=== PATIENT | female | born 1925 | race Caucasian/White ===

== ENCOUNTER 2016-10-22 10:40 | Inpatient (IN) ==
[2016-10-22] MEDS ORDERED: ACETAMINOPHEN 325 MG TABLET PO PRN (13:28)
[2016-10-22] MEDS ORDERED: ONDANSETRON 4 MG/2 ML VIAL IV PRN (13:28)
[2016-10-22] MEDS ORDERED: RANITIDINE 150 MG TABLET PO PRN (13:28)
[2016-10-22] MEDS ORDERED: ZALEPLON 5 MG CAPSULE PO PRN (13:28)
[2016-10-22] MEDS ORDERED: diphenhydrAMINE CAP 25 MG CAPSULE PO PRN (13:28)
--- NOTE | 2016-10-22 13:37 | EKG Report ---
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
--- NOTE | 2016-10-22 13:51 | Hospitalist History & Physical ---
Assessment and Plan - Time spent with patient Time spent with patient: Greater than 30 minutes (1) Dizziness Status: Acute Assessment and plan: Admit labs ordered(CBC, CMP, Troponin, TSH) a.m. labs ECHO Will discuss with Dr Keyes for further recommendations with care. Current Visit: Yes (2) Sinus tachycardia Status: Acute Current Visit: Yes History of Present Illness Chief complaint: fast heart/dizziness History of present illness: Ms. Pugh is a 89 year old white female w/PMHx of GERD presented to [facility] from Sunitha Mcdermott NP office sent for direct admission for heart rate of 139 appeared to be in atrial flutter. Admit to telemetry. Upon arrival placed on the monitor, heart rate 139 and sinus tachycardia. Patient reports dizziness x1 week and shortness of breath with exertion for a couple of weeks. She reports increasing fatigue. She denies chest pain or shortness of breath with rest. she denies nausea or vomiting. Admit patient to hospital services and will consult cardiology. Denies smoking, alcohol use or drug use. She takes Flu vaccine each year. She has had the pneumococcal vaccine previously. PCP: Sunitha Mcdermott NP [place] Supervisor: Dr Crystal Joseph Medications Medication Instructions Recorded Confirmed Type Aspirin [Ecotrin] 81 mg PO BEDTIME 08/03/15 10/22/16 History Calcium Carbonate/Vitamin D3 1 tablet PO BID 08/03/15 10/22/16 History [Calcium 600-Vit D3 800 Tablet] Cholecalciferol (Vitamin D3) 1,000 units PO BID 08/03/15 10/22/16 History [Vitamin D3] Multivitamin [Multivitamins] 1 each PO DAILY 08/03/15 10/22/16 History Omeprazole 20 mg PO BID 08/03/15 10/22/16 History Ranitidine Tab [Zantac Tab] 150 mg PO DAILY PRN 08/03/15 10/22/16 History Vitamin E 400 units PO DAILY 08/03/15 10/22/16 History diphenhydrAMINE CAP [Benadryl Cap] 25 mg PO Q6-8H PRN 08/03/15 10/22/16 History Levothyroxine Tab [Synthroid Tab] 50 mcg PO DAILY@0700 10/26/15 10/22/16 History Allergies Allergy/AdvReac Type Severity Reaction Status Date / Time Penicillins Allergy Severe HIVES Verified 08/07/15 11:27 Beta-Blockers Allergy Intermediate Cough Verified 08/07/15 11:27 (Beta-Adrenergic Bloc azithromycin [From Zithromax] Allergy Unknown Unknown/Unable Verified 08/07/15 11:27 to obtain ceftriaxone [From Rocephin] Allergy Unknown Unknown/Unable Verified 08/07/15 11: 27 to obtain levofloxacin Allergy Verified 10/26/15 07:16 Medical,Surgical,& Family Hx - Medical History Neurology: No history of: Seizures HEENT: History of: Ear Problem (AIDES), Dental Problems (PARTIAL), Glaucoma ( surgery) Endocrine: History of: Dyslipidemia, Thyroid Disorder (NODULES) Respiratory: Comment Only: Respiratory Problems (SINUS SYRGERY) Gastrointestinal: History of: GERD Musculoskeletal: Comment Only: Musculoskeletal Problems (LOW BONE DENSITY) Hematology: No history of: Blood Transfusion Reaction Other: No history of: Anesthesia Reactions - Surgical History Cardiac Surgeries: Sugical HX of: Cardiac Catheterization HEENT Surgeries: Surgical HX of: Eye Surgery (CATARACTS glaucoma), Thyroid Surgery (RIGHTTHYROID LOBECTOMY POSSIBLE TOTAL), Tonsilectomy & Adenoidectomy Abdominal Surgeries: Surgical HX of: Cholecystectomy, Colonoscopy, EGD Reproductive Surgeries: Surgical HX of;: Breast Surgery (LUMP LEFT BREAST), Hysterectomy - Family History Family History: Reports;: Family Heart Disease (DAD SISTER), Family Hypertension (SISTER MOM) - Social History Smoking Status: Never smoker Frequency of Alcohol Use: None Type of Drug Use: None Marital Status: Lives With:: Spouse Functional capacity: independent ambulation 12 point system: reviewed and no additional remarkable complaints except as stated - Constitutional Constitutional: Present: fatigue. Absent: anorexia, chills, fever(s), frequent falls - Cardiovascular Cardiovascular: Present: dyspnea on exertion, lightheadedness. Absent: chest pain at rest - Respiratory Respiratory: Absent: cough, hemoptysis, wheezing - Gastrointestinal Gastrointestinal: Present: diarrhea. Absent: abdominal pain - Neurological Neurological: Present: dizziness (with standing) - Psychiatric Psychiatric: Absent: anxiety Exam - Constitutional Vitals: Period Temp Pulse Resp BP Sys/Melgar Pulse Ox Last 24 Hr 97.9 F 128 18 142/83 97 General appearance: normal weight, no acute distress - Head Head exam: Present: normal inspection - Eye Eye exam: Present: EOMI Pupils: Present: DARRYL - Neck Neck exam: Present: normal inspection - Respiratory Respiratory exam: Present: clear to auscultation bilaterally. Absent: rhonchi, stridor, wheezes - Cardiovascular Cardiovascular exam: Present: tachycardia - GI/Abdominal GI/Abdominal exam: Present: normal bowel sounds, soft. Absent: tenderness, rebound - Extremities Exam Extremities exam: Present: normal inspection, full ROM. Absent: edema - Neurological Exam Neurological exam: Present: alert, oriented X3, CN II-XII intact - Psychiatric Psychiatric exam: Present: normal affect, normal mood. Absent: agitated, anxious - Skin Skin exam: Present: normal color, warm, dry Results - Labs Labs: labs ordered and pending results
--- NOTE | 2016-10-22 14:52 | Cardiology Consult Note ---
<Bernice Obregon - Last Filed: 10/22/16 15:23> Assessment and Plan - Time spent with patient Time spent with patient: Greater than 30 minutes (1) Atrial flutter Status: Acute Assessment and plan: SEE PLAN OF CARE LISTED BELOW. (2) Dizziness Status: Acute (3) Hypothyroidism Status: Chronic (4) GERD (gastroesophageal reflux disease) Status: Chronic Assessment and plan: SEE PLAN OF CARE LISTED BELOW. History of Present Illness - Data of Consult Patient: known to practice within the last 3 years Consult date: 10/22/16 Requesting Physician: Sarah Cruz - Consult Narrative Reason for consult: Tachycardia History of present illness: Online Education Manager: Dr. Rojas Ms. Pugh is a 89 year old female without known history of coronary artery disease, routinely followed by Dr. Rojas. Cardiac risk factors include: advanced age, sedentary lifestyle and family history of premature coronary artery disease (father at age 54 from [place]). She has a past medical history of hypothyroidism, on Synthroid. She just recently underwent nuclear stress test May 08, 2016. This was a normal perfusion study without perfusion defects. No evidence of reversible ischemia. Low risk for future cardiovascular events. Left ventricular ejection fraction calculated to be 86% . Echocardiogram April 30, 2016 revealed LVEF 65% grade 1 diastolic dysfunction. Mild LVH. Mild MR, mild TR and mild aortic regurgitation. PAP 22 mmHg. Patient was directly admitted from [facility]'s office today for tachycardia. She reports that over the past 10 weeks she has "not felt right." She reports that she has been fatigued and tired out quickly. This past week , her symptoms worsen. She reports this past week she felt her pulse. At that point, she realized that her heart was beating faster than usual. She took her blood pressure at that time and it was noted to be 89/50. Heart rate of 132. After that, she continued to monitor her heart rate and blood pressure closely for the remainder of the week and we can. She reports that her heart rate got as high as 136. Never dropped below 132. Blood pressure was borderline low in the low 90s. Associated with dyspnea. Denies associated chest pain, heaviness or tightness. Denies heart palpitations and heart racing. She was worked in at [facility]'s [facility] office today. She underwent EKG as well as chest x-ray. EKG revealed probable atrial flutter. Patient was then directly admitted to hospital medicine service to be further evaluated. Patient's initial EKG reveals atrial flutter versus sinus tachycardia. Atrial flutter suspected. However, it is hard to tell for sure. At this point, we will attempt to slow patient's heart rate with IV diltiazem. Will recheck EKG once her rate has slowed. Chads vasc score 3. Low-dose Eliquis has been initiated for stroke prevention. Will transition patient to p.o. diltiazem tomorrow if able. Labs are pending. Echocardiogram was ordered per hospital medicine. These results will be reviewed. TSH and free T4 pending. Electrolytes pending I will further discuss with Dr. Kayla Lr and await her additional recommendations. Of note, patient denies any contraindications to anticoagulation. IMPRESSION AND PLAN: 1. TACHYCARDIA, SINUS TACHYCARDIA VERSUS ATRIAL FLUTTER - New diagnosis. This appears to be atrial flutter. However, it is hard to tell for sure. At this point, we will attempt to slow patient's heart rate with IV diltiazem. Will recheck EKG once her rate has slowed. Chads vasc score 3. Low-dose Eliquis has been initiated for stroke prevention. Will transition patient to p.o. diltiazem tomorrow if able. I will further discuss with Dr. Kayla Lr and await her additional recommendations. 2. HYPOTHYROIDISM - Synthroid has been continued. Will check TSH and free T4. Defer management to attending. 3. GERD - Continue PPI. CC: Onesimo Keyes MD - Home Medications and Allergies Home Medications: Home Medications Medication Instructions Recorded Confirmed Type Aspirin [Ecotrin] 81 mg PO BEDTIME 08/03/15 10/22/16 History Calcium Carbonate/Vitamin D3 1 tablet PO BID 08/03/15 10/22/16 History [Calcium 600-Vit D3 800 Tablet] Cholecalciferol (Vitamin D3) 1,000 units PO BID 08/03/15 10/22/16 History [Vitamin D3] Multivitamin [Multivitamins] 1 each PO DAILY 08/03/15 10/22/16 History Omeprazole 20 mg PO BID 08/03/15 10/22/16 History Ranitidine Tab [Zantac Tab] 150 mg PO DAILY PRN 08/03/15 10/22/16 History Vitamin E 400 units PO DAILY 08/03/15 10/22/16 History diphenhydrAMINE CAP [Benadryl Cap] 25 mg PO Q6-8H PRN 08/03/15 10/22/16 History Levothyroxine Tab [Synthroid Tab] 50 mcg PO DAILY@0700 10/26/15 10/22/16 History Diltiazem HCl [Cardizem LA] 360 mg PO AC BREAKFAST #60 10/23/16 Rx tab.er.24h Warfarin [Coumadin] 1 mg PO DAILY@1800 #120 tablet 10/23/16 Rx Allergies/Adverse Reactions: Allergies Allergy/AdvReac Type Severity Reaction Status Date / Time Penicillins Allergy Severe HIVES Verified 08/07/15 11:27 Beta-Blockers Allergy Intermediate Cough Verified 08/07/15 11:27 (Beta-Adrenergic Bloc azithromycin [From Zithromax] Allergy Unknown Unknown/Unable Verified 08/07/15 11:27 to obtain ceftriaxone [From Rocephin] Allergy Unknown Unknown/Unable Verified 08/07/15 11: 27 to obtain levofloxacin Allergy Verified 10/26/15 07:16 - Constitutional Constitutional: Present: as per HPI, fatigue, malaise, weakness. Absent: chills , fever(s), frequent falls, weight gain, weight loss - Cardiovascular Cardiovascular: Present: as per HPI, dyspnea, lightheadedness. Absent: chest pain at rest, chest pain with activity, claudication, diaphoresis, edema, radiating jaw, neck or arm pain, orthopnea, palpitations, PND - Respiratory Respiratory: Present: as per HPI, dyspnea. Absent: wheezing, snoring, pain on inspiration, change in phlegm color - Gastrointestinal Gastrointestinal: Present: as per HPI, diarrhea. Absent: coffee ground emesis, hematemesis, hematochezia, loose stools, melena, nausea, vomiting - Neurological Neurological: Present: as per HPI. Absent: abnormal gait, abnormal speech, behavioral changes, disequilibrium, dizziness, frequent falls, syncope - Hematologic/Lymphatic Hematologic/Lymphatic: Absent: easy bleeding, easy bruising, lymphadenopathy Medical,Surgical,& Family Hx - Medical History HEENT: History of: Dental Problems (PARTIAL), Glaucoma (surgery) Endocrine: History of: Dyslipidemia, Thyroid Disorder (NODULES) Respiratory: Comment Only: Respiratory Problems (SINUS SYRGERY) Gastrointestinal: History of: GERD Musculoskeletal: Comment Only: Musculoskeletal Problems (LOW BONE DENSITY) - Surgical History HEENT Surgeries: Surgical HX of: Eye Surgery (CATARACTS glaucoma), Thyroid Surgery (RIGHTTHYROID LOBECTOMY POSSIBLE TOTAL), Tonsilectomy & Adenoidectomy Abdominal Surgeries: Surgical HX of: Cholecystectomy, Colonoscopy, EGD Reproductive Surgeries: Surgical HX of;: Breast Surgery (LUMP LEFT BREAST), Hysterectomy - Family History Family History: Reports;: Family Heart Disease (DAD SISTER), Family Hypertension (SISTER MOM) - Social History Smoking Status: Never smoker Frequency of Alcohol Use: None Type of Drug Use: None Marital Status: Lives With:: Spouse Functional capacity: independent ambulation Physical Examination Vital Signs Temp Pulse Resp BP Pulse Ox 97.9 F 128 H 18 142/83 97 10/22/16 12:03 10/22/16 12:03 10/22/16 12:03 10/22/16 12:03 10/22/16 12:03 Exam: General: Appears well with no apparent distress. Pleasant and cooperative. Appears comfortable. HEENT: PERRL, normocephalic, atraumatic. Mucous membranes moist. No jaundice noted. Conjunctiva moist and clear, sclerae anicteric Neck: No JVD/HJR, no thyromegaly or lymphadenopathy noted. No carotid bruit appreciated Cardiac: Tachycardia. No murmur rub or gallop. Lungs: Clear to auscultation without accessory muscle use to assist the respiratory pattern. Not requiring oxygen. Abdomen: Soft, bowel sounds normoactive. Nontender and nondistended. No abdominal bruit or thrill noted. No masses noted. Extremities: No clubbing, cyanosis noted. No edema noted. Upper extremity pulses 2+. Lower extremity pulses 2+. Capillary refill less than 3 seconds. Skin: No unusual lesions or rashes. No skin breakdown appreciated. Neuro: Awake, alert and oriented 3. Moves all extremities well without hemiparesis or paralysis. No essential tremor is appreciated. Result/EKG - Labs CBC & BMP: 10/22/16 14:56 Lab Results: I have reviewed the past 24 hour labs - EKG EKG results: interpreted by me (Atrial flutter with RVR) Specialty Discharge - Follow Up or Referrals Follow up with: Iwona Rojas DO [Physician] - 11/12/16 2:15 pm (pt/inr lab drawn on 10/28/16 at 10:00 at cis other labs drawn on 10/28/16 at 10:30 at cis) <BeKayla - Last Filed: 10/23/16 18:36> History of Present Illness - Consult Narrative History of present illness: I have personally interviewed and examined the patient, reviewed the chart and discussed medical decision-making with practitioner Sabas. I have read this note and agree with the documentation herein. CC: Onesimo Keyes MD Physical Examination Vital Signs Temp Pulse Resp BP Pulse Ox 97.9 F 128 H 18 142/83 97 10/22/16 12:03 10/22/16 12:03 10/22/16 12:03 10/22/16 12:03 10/22/16 12:03 Result/EKG - Labs CBC & BMP: 10/23/16 04:46 10/23/16 04:46 Labs: Laboratory Results - last 24 hr 10/22/16 10/23/16 10/23/16 22:26 04:46 04:46 WBC 7.5 RBC 3.89 Hgb 11.9 L Hct 35.2 L MCV 90.5 MCH 31 MCHC 33.8 RDW 13.2 Plt Count 235 MPV 9.8 Neut % (Auto) 43.8 Lymph % (Auto) 44.8 [place] % (Auto) 8.4 Eos % (Auto) 2.4 Baso % (Auto) 0.5 Neut # (Auto) 3.3 Lymph # (Auto) 3.4 [place] # (Auto) 0.6 Eos # (Auto) 0.2 Baso # (Auto) 0.0 Immature Gran % 0.1 Nucleated RBC % 0.0 Immature Gran # 0.01 Nucleated RBCs # 0.00 Immature Plt Fraction 0.0 INR PT Patient/Control Mix Sodium 141 Potassium 4.0 Chloride 109 H Carbon Dioxide 24 Anion Gap 12.0 BUN 16 Creatinine 0.80 GFR Calculation 57 BUN/Creatinine Ratio 20.00 Glucose 83 Calculated Osmolality 280.3 Calcium 9.0 Magnesium 2.1 Total Creatine Kinase 48 CK-MB (CK-2) 1.2 Troponin I 0.035 Triglycerides Cholesterol LDL Cholesterol VLDL Cholesterol HDL Cholesterol Heart Disease Risk Ratio 10/23/16 10/23/16 10/23/16 04:46 04:46 04:46 WBC RBC Hgb Hct MCV MCH MCHC RDW Plt Count MPV Neut % (Auto) Lymph % (Auto) [place] % (Auto) Eos % (Auto) Baso % (Auto) Neut # (Auto) Lymph # (Auto) [place] # (Auto) Eos # (Auto) Baso # (Auto) Immature Gran % Nucleated RBC % Immature Gran # Nucleated RBCs # Immature Plt Fraction INR 1.0 PT Patient/Control Mix 10.7 Sodium Potassium Chloride Carbon Dioxide Anion Gap BUN Creatinine GFR Calculation BUN/Creatinine Ratio Glucose Calculated Osmolality Calcium Magnesium Total Creatine Kinase 43 CK-MB (CK-2) < 1.0 Troponin I 0.029 Triglycerides 171 H Cholesterol 222 H LDL Cholesterol 144.0 VLDL Cholesterol 34.2 HDL Cholesterol 50 Heart Disease Risk Ratio 4.44
[2016-10-22] MEDS ORDERED: DILTIAZEM INJ 100 MG in SODIUM CHLORIDE 0.9% 100 ML IV SCH (15:00)
[2016-10-22] MEDS ORDERED: ENOXAPARIN 40 MG/0.4 ML SYRINGE SUBCUT SCH (15:00)
[2016-10-22 15:12] LABS: Basophils % 0.4 % (0.0-0.8); Eosinophils # 0.1 10*3/uL (0.0-0.87); Eosinophils % 1.2 % (0.00-10.9); Hematocrit 40.4 VOL% (35.7-47.0); Hemoglobin 13.7 GM/DL (12.0-16.0); Immature Granulocytes % 0.1 %; Immature Granulocytes Absolute 0.01 #; Lymphocytes # 2.8 10*3/uL (1.4-4.0); Lymphocytes % 41.5 % (21.3-54.2); Mean Corpuscular HGB Conc 33.9 GM/DL (32-36); Mean Corpuscular Hemoglobin 31 PG (27-34); Mean Corpuscular Volume 92.4 FL (87-102); Mean Platelet Volume 9.2 FL (9.6-12.0); Monocytes # 0.4 10*3/uL (0.11-0.8); Monocytes % 6.3 % (1.7-12.7); Neutrophils # 3.4 10*3/uL (1.4-7.4); Neutrophils % 50.5 % (38.7-73.9); Platelet Count 240 T/CUMM (130-400); Red Blood Count 4.37 MC/CUMM (3.8-5.5); Red Cell Distribution Width 13.2 % (9.3-17.3); White Blood Count 6.8 T/CUMM (4-12)
[2016-10-22 15:34] LABS: Calcium 9.5 MG/DL (8.5-10.1); Magnesium 2.5 MG/DL (1.8-2.4); Osmolality,Calculated 281.3 MOS/KG (273-304); Potassium 4.4 MMOL/L (3.5-5.1)
[2016-10-22 15:38] LABS: Troponin I Only < 0.015 NG/ML (0.00-0.045)
[2016-10-22] MEDS: SODIUM CHLORIDE 0.9% 1,000 ML IV SCH (15:39)
[2016-10-22] MEDS: PANTOPRAZOLE 40 MG TABLET PO SCH ×2 (15:42→20:40)
[2016-10-22 15:45] LABS: Free T4 (Free Thyroxine) 1.17 NG/DL (0.76-1.46); Thyroid Stimulating Hormone 1.27 uIU/ml (0.358-3.74)
--- NOTE | 2016-10-22 19:19 | EKG Report ---
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
--- NOTE | 2016-10-22 19:27 | Event Note ---
I am not able to amend practitioner Sabas's notes due to "updates in progress" per the computer. I have personally interviewed and examined the patient, reviewed the chart and discussed medical decision-making with practitioner Sabas. I have read her consult note and agree with the documentation therein. Her rate has slowed considerably and was still regular, repeat ECG confirms atrial flutter. We are going to convert her from IV to oral regimen. She does not want to take Eliquis due to cost and would prefer to be on Coumadin, so we will initiate this this evening.
[2016-10-22] MEDS ORDERED: WARFARIN 5 MG TABLET PO SCH (20:00)
--- NOTE | 2016-10-22 20:06 | ECHO Report ---
Xiomara Pugh Exam Date: 10/22/2016 14:36 Referring Physician: Technologist: Penny Kwong RDCS Age: 89 Ht (in): 62 Wt (lb): 114 Gender: F Exam Location: [facility] Echo Indications: dizziness, sinus tachycardia, SOB, fatique BP: / HR: Rhythm: Atrial flutter Technical Quality: Fair IMPRESSIONS Normal LV systolic function, ejection fraction 65%. Grade 1/4 diastolic dysfunction. Mild mitral, aortic, tricuspid regurgitation. MEASUREMENTS (Male / Female) Normal Values 2D ECHO LV Diastolic Diameter PLAX 3.6 cm 4.2 - 5.9 / 3.9 - 5.3 cm LV Systolic Diameter PLAX 2.1 cm LV Fractional Shortening PLAX 42.8 % IVS Diastolic Thickness 1.0 cm 0.6 - 1.0 / 0.6 - 0.9 cm LVPW Diastolic Thickness 1.0 cm 0.6 - 1.0 / 0.6 - 0.9 cm RV Internal Dim ED PLAX 1.7 cm Aortic Root Diameter 3.4 cm LA Systolic Diameter LX 3.0 cm 3.0 - 4.0 / 2.7 - 3.8 cm DOPPLER TR Peak Velocity 217.0 cm/s TR Peak Gradient 18.8 mmHg FINDINGS Left Ventricle Normal left ventricular cavity size. Mild left ventricular hypertrophy. Left ventricular ejection fraction is estimated at 65%. Right Ventricle The right ventricle is normal in size and function. Right Atrium Normal size. Left Atrium Normal size. Mitral Valve Morphologically normal mitral valve. Trace mitral valve regurgitation. Aortic Valve Trileaflet aortic valve. Mild aortic valve regurgitation. Tricuspid Valve Morphologically normal tricuspid valve. Trace tricuspid valve regurgitation. Tricuspid regurgitation velocities suggest a PAP of 29 mmHg. Pulmonic Valve Morphologically normal pulmonic valve without significant stenosis. There is no pulmonic regurgitation. Pericardium Normal pericardium without effusion. Aorta Normal ascending aorta dimension. Kayla Lr MD (Electronically Signed) Final Date: 22 October 2016 20:05
[2016-10-22] MEDS: CALCIUM (CARBONATE)/VITAMIN D 600 MG-400 UNIT TABLET PO SCH (20:40)
[2016-10-22] MEDS: CHOLECALCIFEROL 1,000 UNIT TABLET PO SCH (20:40)
[2016-10-22] MEDS: APIXABAN 2.5 MG TABLET PO SCH ×2 (20:41→22:40)
[2016-10-22] MEDS: DILTIAZEM CD 120 MG CAPSULE PO SCH (20:46)
[2016-10-22] MEDS ORDERED: ASPIRIN EC 81 MG TABLET PO SCH (21:00)
[2016-10-22 23:41] LABS: Troponin I Only 0.035 NG/ML (0.00-0.045)
[2016-10-23 05:30] LABS: Basophils % 0.5 % (0.0-0.8); Eosinophils # 0.2 10*3/uL (0.0-0.87); Eosinophils % 2.4 % (0.00-10.9); Hematocrit 35.2 VOL% (35.7-47.0); Hemoglobin 11.9 GM/DL (12.0-16.0); Immature Granulocytes % 0.1 %; Immature Granulocytes Absolute 0.01 #; Lymphocytes # 3.4 10*3/uL (1.4-4.0); Lymphocytes % 44.8 % (21.3-54.2); Mean Corpuscular HGB Conc 33.8 GM/DL (32-36); Mean Corpuscular Hemoglobin 31 PG (27-34); Mean Corpuscular Volume 90.5 FL (87-102); Mean Platelet Volume 9.8 FL (9.6-12.0); Monocytes # 0.6 10*3/uL (0.11-0.8); Monocytes % 8.4 % (1.7-12.7); Neutrophils # 3.3 10*3/uL (1.4-7.4); Neutrophils % 43.8 % (38.7-73.9); Platelet Count 235 T/CUMM (130-400); Red Blood Count 3.89 MC/CUMM (3.8-5.5); Red Cell Distribution Width 13.2 % (9.3-17.3); White Blood Count 7.5 T/CUMM (4-12)
[2016-10-23 05:58] LABS: PT Patient Result 10.7 SECS
[2016-10-23 06:01] LABS: Magnesium 2.1 MG/DL (1.8-2.4); Osmolality,Calculated 280.3 MOS/KG (273-304)
[2016-10-23 06:11] LABS: Risk Ratio 4.44; VLDL CHOLESTEROL 34.2 MG/DL
[2016-10-23] MEDS: PANTOPRAZOLE 40 MG TABLET PO SCH ×2 (06:12→09:44)
[2016-10-23 06:40] LABS: Troponin I Only 0.029 NG/ML (0.00-0.045)
[2016-10-23] MEDS ORDERED: LEVOTHYROXINE 50 MCG TABLET PO SCH (07:00)
[2016-10-23] MEDS ORDERED: FAMOTIDINE 20 MG TABLET PO SCH (07:00)
--- NOTE | 2016-10-23 07:34 | EKG Report ---
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
[2016-10-23] MEDS ORDERED: MULTIVITAMIN (CENTRUM) TABLET PO SCH (09:00)
[2016-10-23] MEDS ORDERED: VITAMIN E 400 UNIT CAPSULE PO SCH (09:00)
[2016-10-23] MEDS: CHOLECALCIFEROL 1,000 UNIT TABLET PO SCH (09:44)
[2016-10-23] MEDS: CALCIUM (CARBONATE)/VITAMIN D 600 MG-400 UNIT TABLET PO SCH (09:44)
[2016-10-23] MEDS: DILTIAZEM CD 120 MG CAPSULE PO SCH (09:45)
[2016-10-23] MEDS ORDERED: APIXABAN 2.5 MG TABLET PO SCH (10:00)
--- NOTE | 2016-10-23 10:02 | Cardiology Progress Note ---
<Bernice Obregon - Last Filed: 10/23/16 11:00> Assessment and Plan (1) Atrial flutter Status: Acute Assessment and plan: SEE PLAN OF CARE LISTED BELOW. Current Visit: Yes (2) Dizziness Status: Acute Current Visit: Yes (3) Hypothyroidism Status: Chronic Current Visit: Yes (4) GERD (gastroesophageal reflux disease) Status: Chronic Assessment and plan: SEE PLAN OF CARE LISTED BELOW. Current Visit: Yes (5) Elevated cholesterol with elevated triglycerides Status: Acute Assessment and plan: SEE PLAN OF CARE LISTED BELOW. Current Visit: Yes Cardiology - PN: Subj Interval history: [employer] COACH: Dr. Rojas SUMMARY Ms. Pugh is a 89 year old female without known history of coronary artery disease, routinely followed by Dr. Rojas. Cardiac risk factors include: advanced age, sedentary lifestyle and family history of premature coronary artery disease (father at age 54 from [place]). She has a past medical history of hypothyroidism, on Synthroid. She just recently underwent nuclear stress test May 08, 2016. This was a normal perfusion study without perfusion defects. No evidence of reversible ischemia. Low risk for future cardiovascular events. Left ventricular ejection fraction calculated to be 86% . Echocardiogram April 30, 2016 revealed LVEF 65% grade 1 diastolic dysfunction. Mild LVH. Mild MR, mild TR and mild aortic regurgitation. PAP 22 mmHg. Patient was directly admitted from [facility]'s office today for atrial flutter with rapid ventricular response. She was started on IV diltiazem. Transition to p.o. yesterday evening. She has tolerated well. Chads vasc score 3. Eliquis was switched to Coumadin due to cost issues. INR today is 1.0. Will continue to bridge with Eliquis until INR reaches 1.5. 2016 Patient was seen and examined on the telemetry unit. She has done well overnight. Echocardiogram was performed yesterday which revealed normal LV systolic function with ejection fraction estimated at 65%. Grade 1 out of 4 diastolic dysfunction. Mild mitral, aortic and tricuspid valve regurgitation per she was transitioned to p.o. diltiazem yesterday. She has tolerated this well. She has been overall well rate controlled. Continues to be in atrial flutter. Her heart rate is currently ranging from 80s-90s. Reluctant to increase diltiazem as her blood pressure will not allow. Most recent blood pressure noted to be 110/65. INR today is 1.0. Continue Coumadin. Will continue to bridge with Eliquis until INR reaches 1.5. She is without complaints of chest pain, heaviness or tightness. Also denies heart racing/ palpitations. Labs been reviewed. Vital signs stable. I will further discuss with Dr. Lr and await her additional recommendations. IMPRESSION AND PLAN: 1. ATRIAL FLUTTER, NEW ONSET- Repeat EKG confirmed atrial flutter. Right now controlled with diltiazem. Patient transitioned to p.o. yesterday evening. Tolerated well. Chads vasc score 3. Eliquis was switched to Coumadin due to cost issues. INR today is 1.0. Will continue to bridge with Eliquis until INR reaches 1.5. Patient may be eligible for discharge later today or tomorrow morning. I will further discuss with Dr. Lr and await her additional recommendations. 2. HYPOTHYROIDISM - Continue Synthroid. Defer management to attending. 3. GERD - Controlled continue PPI. 4. ELEVATED TOTAL CHOLESTEROL - Results of patient's lipid panel were discussed. She has opted to attempt lifestyle changes. Dietitian consulted. She will need a repeat lipid panel in 4-6 weeks. If this continues to be elevated can consider statin therapy. Exam (Progress Note) - Constitutional Vitals: Period Temp Pulse Resp BP Sys/Melgar Pulse Ox Last 24 Hr 97.4 F-98.3 F 67-133 16-18 98-142/57-83 94-97 Exam: General: Appears well with no apparent distress. Pleasant and cooperative. Appears comfortable. HEENT: PERRL, normocephalic, atraumatic. Mucous membranes moist. No jaundice noted. Conjunctiva moist and clear, sclerae anicteric Neck: No JVD/HJR, no thyromegaly or lymphadenopathy noted. No carotid bruit appreciated Cardiac: Irregular rhythm. No murmur rub or gallop. Lungs: Clear to auscultation without accessory muscle use to assist the respiratory pattern. Not requiring oxygen. Abdomen: Soft, bowel sounds normoactive. Nontender and nondistended. No abdominal bruit or thrill noted. No masses noted. Extremities: No clubbing, cyanosis noted. No edema noted. Upper extremity pulses 2+. Lower extremity pulses 2+. Capillary refill less than 3 seconds. Skin: No unusual lesions or rashes. No skin breakdown appreciated. Neuro: Awake, alert and oriented 3. Moves all extremities well without hemiparesis or paralysis. No essential tremor is appreciated. Result/EKG - Labs CBC & BMP: 10/23/16 04:46 10/23/16 04:46 Lab Results: I have reviewed the past 24 hour labs Labs: Laboratory Results - last 24 hr 10/22/16 10/22/16 10/22/16 14:56 14:56 14:56 WBC 6.8 RBC 4.37 Hgb 13.7 Hct 40.4 MCV 92.4 MCH 31 MCHC 33.9 RDW 13.2 Plt Count 240 MPV 9.2 L Neut % (Auto) 50.5 Lymph % (Auto) 41.5 [place] % (Auto) 6.3 Eos % (Auto) 1.2 Baso % (Auto) 0.4 Neut # (Auto) 3.4 Lymph # (Auto) 2.8 [place] # (Auto) 0.4 Eos # (Auto) 0.1 Baso # (Auto) 0.0 Immature Gran % 0.1 Nucleated RBC % 0.0 Immature Gran # 0.01 Nucleated RBCs # 0.00 Immature Plt Fraction 0.0 INR PT Patient/Control Mix Sodium 141 Potassium 4.4 Chloride 105 Carbon Dioxide 29 Anion Gap 11.4 BUN 15 Creatinine 0.90 GFR Calculation 49 BUN/Creatinine Ratio 16.00 Glucose 107 H Calculated Osmolality 281.3 Calcium 9.5 Magnesium 2.5 H Total Creatine Kinase CK-MB (CK-2) Troponin I Triglycerides Cholesterol LDL Cholesterol VLDL Cholesterol HDL Cholesterol Heart Disease Risk Ratio Free T4 1.17 TSH 3rd Generation 1.270 10/22/16 10/22/16 10/23/16 14:56 22:26 04:46 WBC 7.5 RBC 3.89 Hgb 11.9 L Hct 35.2 L MCV 90.5 MCH 31 MCHC 33.8 RDW 13.2 Plt Count 235 MPV 9.8 Neut % (Auto) 43.8 Lymph % (Auto) 44.8 [place] % (Auto) 8.4 Eos % (Auto) 2.4 Baso % (Auto) 0.5 Neut # (Auto) 3.3 Lymph # (Auto) 3.4 [place] # (Auto) 0.6 Eos # (Auto) 0.2 Baso # (Auto) 0.0 Immature Gran % 0.1 Nucleated RBC % 0.0 Immature Gran # 0.01 Nucleated RBCs # 0.00 Immature Plt Fraction 0.0 INR PT Patient/Control Mix Sodium Potassium Chloride Carbon Dioxide Anion Gap BUN Creatinine GFR Calculation BUN/Creatinine Ratio Glucose Calculated Osmolality Calcium Magnesium Total Creatine Kinase 51 48 CK-MB (CK-2) 1.2 1.2 Troponin I < 0.015 0.035 Triglycerides Cholesterol LDL Cholesterol VLDL Cholesterol HDL Cholesterol Heart Disease Risk Ratio Free T4 TSH 3rd Generation 10/23/16 10/23/16 10/23/16 04:46 04:46 04:46 WBC RBC Hgb Hct MCV MCH MCHC RDW Plt Count MPV Neut % (Auto) Lymph % (Auto) [place] % (Auto) Eos % (Auto) Baso % (Auto) Neut # (Auto) Lymph # (Auto) [place] # (Auto) Eos # (Auto) Baso # (Auto) Immature Gran % Nucleated RBC % Immature Gran # Nucleated RBCs # Immature Plt Fraction INR PT Patient/Control Mix Sodium 141 Potassium 4.0 Chloride 109 H Carbon Dioxide 24 Anion Gap 12.0 BUN 16 Creatinine 0.80 GFR Calculation 57 BUN/Creatinine Ratio 20.00 Glucose 83 Calculated Osmolality 280.3 Calcium 9.0 Magnesium 2.1 Total Creatine Kinase 43 CK-MB (CK-2) < 1.0 Troponin I 0.029 Triglycerides 171 H Cholesterol 222 H LDL Cholesterol 144.0 VLDL Cholesterol 34.2 HDL Cholesterol 50 Heart Disease Risk Ratio 4.44 Free T4 TSH 3rd Generation 10/23/16 04:46 WBC RBC Hgb Hct MCV MCH MCHC RDW Plt Count MPV Neut % (Auto) Lymph % (Auto) [place] % (Auto) Eos % (Auto) Baso % (Auto) Neut # (Auto) Lymph # (Auto) [place] # (Auto) Eos # (Auto) Baso # (Auto) Immature Gran % Nucleated RBC % Immature Gran # Nucleated RBCs # Immature Plt Fraction INR 1.0 PT Patient/Control Mix 10.7 Sodium Potassium Chloride Carbon Dioxide Anion Gap BUN Creatinine GFR Calculation BUN/Creatinine Ratio Glucose Calculated Osmolality Calcium Magnesium Total Creatine Kinase CK-MB (CK-2) Troponin I Triglycerides Cholesterol LDL Cholesterol VLDL Cholesterol HDL Cholesterol Heart Disease Risk Ratio Free T4 TSH 3rd Generation Specialty Discharge - Follow Up or Referrals Follow up with: Iwona Rojas DO [Physician] - 11/12/16 2:15 pm (With EKG, INR and CBC.) <Kayla Lr - Last Filed: 10/23/16 13:23> Cardiology - PN: Subj Interval history: I have personally interviewed and examined the patient, reviewed the chart and discussed medical decision-making with practitioner Sabas. I have read this note and agree with the documentation herein. I discussed this case personally with Dr. Keyes. We are going to increase her calcium channel ankit for blood pressure allows and discharge her on Coumadin, she will follow-up in the Coumadin clinic and we will make these arrangements. Because this is atrial fibrillation she does not need to be bridged with her Coumadin. Exam (Progress Note) - Constitutional Vitals: Period Temp Pulse Resp BP Sys/Melgar Pulse Ox Last 24 Hr 97.4 F-98.3 F 67-133 16-20 98-123/57-80 94-96 Result/EKG - Labs CBC & BMP: 10/23/16 04:46 10/23/16 04:46 Labs: Laboratory Results - last 24 hr 10/22/16 10/22/16 10/22/16 14:56 14:56 14:56 WBC 6.8 RBC 4.37 Hgb 13.7 Hct 40.4 MCV 92.4 MCH 31 MCHC 33.9 RDW 13.2 Plt Count 240 MPV 9.2 L Neut % (Auto) 50.5 Lymph % (Auto) 41.5 [place] % (Auto) 6.3 Eos % (Auto) 1.2 Baso % (Auto) 0.4 Neut # (Auto) 3.4 Lymph # (Auto) 2.8 [place] # (Auto) 0.4 Eos # (Auto) 0.1 Baso # (Auto) 0.0 Immature Gran % 0.1 Nucleated RBC % 0.0 Immature Gran # 0.01 Nucleated RBCs # 0.00 Immature Plt Fraction 0.0 INR PT Patient/Control Mix Sodium 141 Potassium 4.4 Chloride 105 Carbon Dioxide 29 Anion Gap 11.4 BUN 15 Creatinine 0.90 GFR Calculation 49 BUN/Creatinine Ratio 16.00 Glucose 107 H Calculated Osmolality 281.3 Calcium 9.5 Magnesium 2.5 H Total Creatine Kinase CK-MB (CK-2) Troponin I Triglycerides Cholesterol LDL Cholesterol VLDL Cholesterol HDL Cholesterol Heart Disease Risk Ratio Free T4 1.17 TSH 3rd Generation 1.270 10/22/16 10/22/16 10/23/16 14:56 22:26 04:46 WBC 7.5 RBC 3.89 Hgb 11.9 L Hct 35.2 L MCV 90.5 MCH 31 MCHC 33.8 RDW 13.2 Plt Count 235 MPV 9.8 Neut % (Auto) 43.8 Lymph % (Auto) 44.8 [place] % (Auto) 8.4 Eos % (Auto) 2.4 Baso % (Auto) 0.5 Neut # (Auto) 3.3 Lymph # (Auto) 3.4 [place] # (Auto) 0.6 Eos # (Auto) 0.2 Baso # (Auto) 0.0 Immature Gran % 0.1 Nucleated RBC % 0.0 Immature Gran # 0.01 Nucleated RBCs # 0.00 Immature Plt Fraction 0.0 INR PT Patient/Control Mix Sodium Potassium Chloride Carbon Dioxide Anion Gap BUN Creatinine GFR Calculation BUN/Creatinine Ratio Glucose Calculated Osmolality Calcium Magnesium Total Creatine Kinase 51 48 CK-MB (CK-2) 1.2 1.2 Troponin I < 0.015 0.035 Triglycerides Cholesterol LDL Cholesterol VLDL Cholesterol HDL Cholesterol Heart Disease Risk Ratio Free T4 TSH 3rd Generation 10/23/16 10/23/16 10/23/16 04:46 04:46 04:46 WBC RBC Hgb Hct MCV MCH MCHC RDW Plt Count MPV Neut % (Auto) Lymph % (Auto) [place] % (Auto) Eos % (Auto) Baso % (Auto) Neut # (Auto) Lymph # (Auto) [place] # (Auto) Eos # (Auto) Baso # (Auto) Immature Gran % Nucleated RBC % Immature Gran # Nucleated RBCs # Immature Plt Fraction INR PT Patient/Control Mix Sodium 141 Potassium 4.0 Chloride 109 H Carbon Dioxide 24 Anion Gap 12.0 BUN 16 Creatinine 0.80 GFR Calculation 57 BUN/Creatinine Ratio 20.00 Glucose 83 Calculated Osmolality 280.3 Calcium 9.0 Magnesium 2.1 Total Creatine Kinase 43 CK-MB (CK-2) < 1.0 Troponin I 0.029 Triglycerides 171 H Cholesterol 222 H LDL Cholesterol 144.0 VLDL Cholesterol 34.2 HDL Cholesterol 50 Heart Disease Risk Ratio 4.44 Free T4 TSH 3rd Generation 10/23/16 04:46 WBC RBC Hgb Hct MCV MCH MCHC RDW Plt Count MPV Neut % (Auto) Lymph % (Auto) [place] % (Auto) Eos % (Auto) Baso % (Auto) Neut # (Auto) Lymph # (Auto) [place] # (Auto) Eos # (Auto) Baso # (Auto) Immature Gran % Nucleated RBC % Immature Gran # Nucleated RBCs # Immature Plt Fraction INR 1.0 PT Patient/Control Mix 10.7 Sodium Potassium Chloride Carbon Dioxide Anion Gap BUN Creatinine GFR Calculation BUN/Creatinine Ratio Glucose Calculated Osmolality Calcium Magnesium Total Creatine Kinase CK-MB (CK-2) Troponin I Triglycerides Cholesterol LDL Cholesterol VLDL Cholesterol HDL Cholesterol Heart Disease Risk Ratio Free T4 TSH 3rd Generation
[2016-10-23 11:57] VITALS: BP 114/75
--- NOTE | 2016-10-23 12:06 | Discharge Summary ---
Hospital Course - Hospital Course Hospital Course: The patient was admitted to hospital with weakness and intermittent palpitations. She was found to have atrial flutter. The patient was treated with intravenous Cardizem for rate control and then started on long-acting Cardizem capsule at the time of discharge. The patient feels better. Echocardiogram revealed ejection fraction 65% with left atrial diameter of 30 mm. The patient is familiar with warfarin and will be anticoagulated. The patient will follow up with Coumadin clinic at [facility]. The patient will see Dr. Batista in follow-up and discuss possible ablation at that time. On the date of discharge, chest is clear, heart has irregular rhythm consistent with atrial flutter, abdomen soft. Patient medications were reconciled upon admission, and again at the time of discharge. The patient was screened for tobacco use and found to be a never smoker. The patient was given 4 minutes of tobacco avoidance education. The patient's medical decsion maker is themself, and when asked, they asked to be Full code. Discharge Time was 36 minutes, including final examination, evaluation and planning, education, reconciliation of medications, writing prescriptions, coordinating care with caseworker intake, and preparing discharge documentation. - Time spent with patient Time with patient DS: Greater than 30 minutes Diagnosis - Discharge Diagnosis (1) Atrial flutter Status: Acute Specialty Discharge - Follow Up or Referrals Follow up with: Iwona Rojas DO [Physician] - 2 Weeks (With EKG, INR and CBC.) Discharge Plan - Discharge Data Disposition: Disch To Home/Self Care Condition at Discharge: Stable Discharge Diet: heart healthy Activity: resume usual activities as tolerated - Discharge Medications New Warfarin [Coumadin] 1 mg PO DAILY@1800 #120 tablet Diltiazem HCl [Cardizem LA] 360 mg PO AC BREAKFAST #60 tab.er.24h Continue Omeprazole 20 mg PO BID Ranitidine Tab [Zantac Tab] 150 mg PO DAILY PRN PRN Reason: Heartburn diphenhydrAMINE CAP [Benadryl Cap] 25 mg PO Q6-8H PRN PRN Reason: Sinus Symptoms Cholecalciferol (Vitamin D3) [Vitamin D3] 1,000 units PO BID Vitamin E 400 units PO DAILY Aspirin [Ecotrin] 81 mg PO BEDTIME Multivitamin [Multivitamins] 1 each PO DAILY Calcium Carbonate/Vitamin D3 [Calcium 600-Vit D3 800 Tablet] 1 tablet PO BID Levothyroxine Tab [Synthroid Tab] 50 mcg PO DAILY@0700 - Follow Up or Referral Follow Up: wIona Rojas DO [Physician] - 2 Weeks (With EKG, INR and CBC.) - Forms/Instructions Exam - Constitutional Vitals: Period Temp Pulse Resp BP Sys/Melgar Pulse Ox Last 24 Hr 97.4 F-98.3 F 67-133 16-20 98-123/57-80 94-96 Discharge Results Procedures and tests throughout hospitalization: Pending Orders 10/24/16 04:00 BMP w/ Mg [Basic Metabolic Panel w/Mg] IN AM CBC [Comp Blood Count Auto Diff] IN AM PT & PTT IN AM Prothrombin Time INR IN AM 10/25/16 04:00 BMP w/ Mg [Basic Metabolic Panel w/Mg] IN AM CBC [Comp Blood Count Auto Diff] IN AM PT & PTT IN AM Prothrombin Time INR IN AM 10/26/16 04:00 PT & PTT IN AM 10/27/16 04:00 PT & PTT IN AM 10/28/16 04:00 PT & PTT IN AM Labs on day of discharge: Labs from last 24 hours 10/23/16 10/23/16 10/23/16 04:46 04:46 04:46 WBC RBC Hgb Hct MCV MCH MCHC RDW Plt Count MPV Neut % (Auto) Lymph % (Auto) [place] % (Auto) Eos % (Auto) Baso % (Auto) Neut # (Auto) Lymph # (Auto) [place] # (Auto) Eos # (Auto) Baso # (Auto) Immature Gran % Nucleated RBC % Immature Gran # Nucleated RBCs # Immature Plt Fraction INR 1.0 PT Patient/Control Mix 10.7 Sodium Potassium Chloride Carbon Dioxide Anion Gap BUN Creatinine GFR Calculation BUN/Creatinine Ratio Glucose Calculated Osmolality Calcium Magnesium Total Creatine Kinase 43 CK-MB (CK-2) < 1.0 Troponin I 0.029 Triglycerides 171 H Cholesterol 222 H LDL Cholesterol 144.0 VLDL Cholesterol 34.2 HDL Cholesterol 50 Heart Disease Risk Ratio 4.44 Free T4 TSH 3rd Generation 10/23/16 10/23/16 10/22/16 04:46 04:46 22:26 WBC 7.5 RBC 3.89 Hgb 11.9 L Hct 35.2 L MCV 90.5 MCH 31 MCHC 33.8 RDW 13.2 Plt Count 235 MPV 9.8 Neut % (Auto) 43.8 Lymph % (Auto) 44.8 [place] % (Auto) 8.4 Eos % (Auto) 2.4 Baso % (Auto) 0.5 Neut # (Auto) 3.3 Lymph # (Auto) 3.4 [place] # (Auto) 0.6 Eos # (Auto) 0.2 Baso # (Auto) 0.0 Immature Gran % 0.1 Nucleated RBC % 0.0 Immature Gran # 0.01 Nucleated RBCs # 0.00 Immature Plt Fraction 0.0 INR PT Patient/Control Mix Sodium 141 Potassium 4.0 Chloride 109 H Carbon Dioxide 24 Anion Gap 12.0 BUN 16 Creatinine 0.80 GFR Calculation 57 BUN/Creatinine Ratio 20.00 Glucose 83 Calculated Osmolality 280.3 Calcium 9.0 Magnesium 2.1 Total Creatine Kinase 48 CK-MB (CK-2) 1.2 Troponin I 0.035 Triglycerides Cholesterol LDL Cholesterol VLDL Cholesterol HDL Cholesterol Heart Disease Risk Ratio Free T4 TSH 3rd Generation 10/22/16 10/22/16 10/22/16 14:56 14:56 14:56 WBC 6.8 RBC 4.37 Hgb 13.7 Hct 40.4 MCV 92.4 MCH 31 MCHC 33.9 RDW 13.2 Plt Count 240 MPV 9.2 L Neut % (Auto) 50.5 Lymph % (Auto) 41.5 [place] % (Auto) 6.3 Eos % (Auto) 1.2 Baso % (Auto) 0.4 Neut # (Auto) 3.4 Lymph # (Auto) 2.8 [place] # (Auto) 0.4 Eos # (Auto) 0.1 Baso # (Auto) 0.0 Immature Gran % 0.1 Nucleated RBC % 0.0 Immature Gran # 0.01 Nucleated RBCs # 0.00 Immature Plt Fraction 0.0 INR PT Patient/Control Mix Sodium Potassium Chloride Carbon Dioxide Anion Gap BUN Creatinine GFR Calculation BUN/Creatinine Ratio Glucose Calculated Osmolality Calcium Magnesium Total Creatine Kinase 51 CK-MB (CK-2) 1.2 Troponin I < 0.015 Triglycerides Cholesterol LDL Cholesterol VLDL Cholesterol HDL Cholesterol Heart Disease Risk Ratio Free T4 1.17 TSH 3rd Generation 1.270 10/22/16 14:56 WBC RBC Hgb Hct MCV MCH MCHC RDW Plt Count MPV Neut % (Auto) Lymph % (Auto) [place] % (Auto) Eos % (Auto) Baso % (Auto) Neut # (Auto) Lymph # (Auto) [place] # (Auto) Eos # (Auto) Baso # (Auto) Immature Gran % Nucleated RBC % Immature Gran # Nucleated RBCs # Immature Plt Fraction INR PT Patient/Control Mix Sodium 141 Potassium 4.4 Chloride 105 Carbon Dioxide 29 Anion Gap 11.4 BUN 15 Creatinine 0.90 GFR Calculation 49 BUN/Creatinine Ratio 16.00 Glucose 107 H Calculated Osmolality 281.3 Calcium 9.5 Magnesium 2.5 H Total Creatine Kinase CK-MB (CK-2) Troponin I Triglycerides Cholesterol LDL Cholesterol VLDL Cholesterol HDL Cholesterol Heart Disease Risk Ratio Free T4 TSH 3rd Generation DS: Provider Date of admission: 10/22/16 12:49 Primary care physician: Sunitha Mcdermott NP Attending physician on admission: Adrián Valladares Consults: 10/22/16 13:28 Consult to Physician [CONS] Routine Comment: tachycardia Consulting Provider: Iwona Rojas Person Notified: Tanisha Date Notified: 10/22/16 Time Notified: 13:40 10/22/16 22:25 Consult to Pastoral Services [CONS] Routine Comment: Pastoral Screen: Declines Visit 10/23/16 11:02 Consult to Dietitian [CONS] Routine Reason for Dietitian: Diet Instruction Consult Comment: Low-cholesterol Discharging clinician: Onesimo Keyes MD
[2016-10-23] MEDS: SODIUM CHLORIDE 0.9% 1,000 ML IV SCH (12:28)
== END 2016-10-23 14:27 | disposition home or self-care (01) | DRG 310 ==
LOC: SUATTDRO 11:11 → N.TELES 11:11
PROVIDERS: ATTEND Internal Medicine

== ENCOUNTER 2016-11-12 15:57 | Inpatient (IN) ==
[2016-11-12] MEDS ORDERED: ZALEPLON 5 MG CAPSULE PO PRN (16:01)
[2016-11-12] MEDS ORDERED: ACETAMINOPHEN 325 MG TABLET PO PRN (16:01)
[2016-11-12] MEDS ORDERED: diphenhydrAMINE CAP 25 MG CAPSULE PO PRN (16:01)
[2016-11-12] MEDS ORDERED: DOCUSATE SODIUM 100 MG CAPSULE PO PRN (16:01)
[2016-11-12] MEDS ORDERED: ONDANSETRON 4 MG/2 ML VIAL IV PRN (16:01)
[2016-11-12] MEDS: DILTIAZEM INJ 100 MG in SODIUM CHLORIDE 0.9% 100 ML IV SCH (18:19)
[2016-11-12] MEDS: SODIUM CHLORIDE 0.45% 1,000 ML IV SCH (18:19)
[2016-11-12 18:49] LABS: Apearance,Urine Slightly Hazy (Clear); Bilirubin,Urine Negative (Negative); Blood, Urine Negative (Negative); Glucose,Urine (UA) Negative (Negative); Ketones,Urine Negative (Negative); Mucus,Urine Occasional /LPF (Occasional); Nitrite,Urine Negative (Negative); Protein,Urine Negative; RBC,Urine 12 /HPF (0-4); Squamous Epithelial Cell,Urine Occasional /HPF (0-10); Urine Color Yellow (Yellow); Urine Specific Gravity 1.011 (1.001-1.035); Urine Urobilinogen < 2.0 EU/DL (0.2-1.0); WBC,Urine 98 /HPF (0-6)
--- NOTE | 2016-11-12 21:08 | XRay Report ---
Portable chest Exam date: 11/12/2016 826 PM Indication: Shortness of breath, cough Comparison: August 08, 2015 Findings: Cardiomediastinal contours are stable. Chronic interstitial coarsening. No acute osseous abnormalities. Visualized upper abdomen demonstrates no acute pathology. Impression: No acute cardiopulmonary findings PROCEDURE INTERPRETED AT [facility] DEPARTMENT OF RADIOLOGY Final Report Signed by: Howrad Saucedo MD
[2016-11-13 05:05] LABS: Basophils % 0.5 % (0.0-0.8); Eosinophils # 0.2 10*3/uL (0.0-0.87); Eosinophils % 1.9 % (0.00-10.9); Hematocrit 35.9 VOL% (35.7-47.0); Hemoglobin 12.2 GM/DL (12.0-16.0); Immature Granulocytes % 0.4 %; Immature Granulocytes Absolute 0.03 #; Lymphocytes # 2.8 10*3/uL (1.4-4.0); Lymphocytes % 34.4 % (21.3-54.2); Mean Corpuscular Hemoglobin 30 PG (27-34); Mean Corpuscular Volume 89.3 FL (87-102); Mean Platelet Volume 8.9 FL (9.6-12.0); Monocytes # 0.7 10*3/uL (0.11-0.8); Neutrophils # 4.4 10*3/uL (1.4-7.4); Neutrophils % 54.8 % (38.7-73.9); Platelet Count 252 T/CUMM (130-400); Red Blood Count 4.02 MC/CUMM (3.8-5.5); Red Cell Distribution Width 13.2 % (9.3-17.3); White Blood Count 8.1 T/CUMM (4-12)
[2016-11-13 06:13] LABS: Calcium 9.6 MG/DL (8.5-10.1); Magnesium 2.2 MG/DL (1.8-2.4); Osmolality,Calculated 285.1 MOS/KG (273-304)
--- NOTE | 2016-11-13 07:16 | Order Completion Report ---
See report scanned to EMR
[2016-11-13] MEDS: PANTOPRAZOLE 40 MG TABLET PO SCH (08:48)
[2016-11-13 09:22] LABS: INR 4.7
[2016-11-13 09:29] LABS: PT Patient Result 49.7 SECS
--- NOTE | 2016-11-13 12:58 | Electrophysiology Consultation ---
Jason Koroma Vanessa, RN, am scribing for, and in the presence of, Joseluis Romo MD 12 :57. History of Present Illness - Data of Consult Patient: known to practice within the last 3 years Consult date: 11/13/16 Requesting Physician: Iwona Rojas - Consult Narrative Reason for consult: atrial flutter History of present illness: Ms. Pugh, 89 year old WF, followed by Dr. Rojas. PMHx includes hypertension, hyperlipidemia, hypothyroid. No history of CAD. Hospitalized a couple weeks ago with new onset atrial flutter with RVR. Ventricular response controlled with IV Cardizem and was started on Eliquis. Discharged home with PO Cardizem and Coumadin (due to cost issues with Eliquis). Seen in follow up by primary installers mechanical in clinic yesterday. EKG in clinic showed atrial flutter with RVR 150. She is symptomatic with this--shortness of breath, fatigue, mild lightheadedness. Supratherapeutic INR 4.3 and Coumadin being held. Admitted to tele for rate control. EP consulted for possible EP study and ablation. Hypertension is well controlled and does not require routine antihypertensives medications. Denies history of sleep apnea. This morning, she feels well. Remains on IV Cardizem infusion. Atrial flutter with ventricular response 80s. Continues to have bursts of rapid ventricular response with pulse rate up to 130. No shortness of breath at rest. No exertional chest tightness or pain reports she typically experiences shortness of breath with activity and fatigue. Admits she has had some chest discomfort "on and off" over the last couple years. Nuclear stress test in April 2016 with no perfusion defect and no ischemia. Echocardiogram October 22 with mild LVH, EF 65%, mild MR and TR, PAP 29 mmHg, no significant valvular disease. Repeat INR 4.7 this morning. UA with large leukocytosis. Reviewed INR trend from [facility]. It was 1.6 on 11/01, thereafter, it was supratherapeutic. Flutter was 2-1 conduction, with morphology that appear typical [facility], no current EKG, the flutter CL unchanged, however, F-wave morphology is slightly different. Still RVR. CC: Iwona Rojas, DO - Home Medications and Allergies Home Medications: Home Medications Medication Instructions Recorded Confirmed Type Calcium Carbonate/Vitamin D3 1 tablet PO BID 08/03/15 11/12/16 History [Calcium 600-Vit D3 800 Tablet] Cholecalciferol (Vitamin D3) 2,000 units PO DAILY 08/03/15 11/12/16 History [Vitamin D3] Multivitamin [Multivitamins] 1 each PO DAILY 08/03/15 11/12/16 History Omeprazole 40 mg PO AC BREAKFAST 08/03/15 11/12/16 History Ranitidine Tab [Zantac Tab] 150 mg PO DAILY PRN 08/03/15 11/12/16 History Vitamin E 400 units PO DAILY 08/03/15 11/12/16 History diphenhydrAMINE CAP [Benadryl Cap] 25 mg PO Q6-8H PRN 08/03/15 11/12/16 History Levothyroxine Tab [Synthroid Tab] 50 mcg PO DAILY@0700 10/26/15 11/12/16 History Diltiazem HCl [Cardizem LA] 360 mg PO AC BREAKFAST #60 10/23/16 11/12/16 Rx tab.er.24h Flaxseed Oil 1,300 mg PO DAILY 11/12/16 11/12/16 History Gabapentin 300 mg PO BEDTIME 11/12/16 11/12/16 History Red Yeast Rice 1,200 mg PO DAILY 11/12/16 11/12/16 History Tramadol HCl [Tramadol Tab] 25 mg PO BID PRN 11/12/16 11/12/16 History Warfarin [Coumadin] 5 mg PO DAILY@1800 11/12/16 11/12/16 History Allergies/Adverse Reactions: Allergies Allergy/AdvReac Type Severity Reaction Status Date / Time Penicillins Allergy Severe HIVES Verified 08/07/15 11:27 Beta-Blockers Allergy Intermediate Cough Verified 08/07/15 11:27 (Beta-Adrenergic Bloc azithromycin [From Zithromax] Allergy Unknown Unknown/Unable Verified 08/07/15 11:27 to obtain ceftriaxone [From Rocephin] Allergy Unknown Unknown/Unable Verified 08/07/15 11: 27 to obtain levofloxacin Allergy Verified 10/26/15 07:16 Medical,Surgical,& Family Hx - Medical History Cardio: History of: Cardiac Dysrhythmia (Aflutter), Hypertension No history of: CAD, [place] Psychological: No history of: Depression Neurology: No history of: Cerebral Palsy, Seizures, TIA HEENT: History of: Ear Problem (AIDES), Dental Problems (PARTIAL), Glaucoma ( surgery) Endocrine: History of: Dyslipidemia, Thyroid Disorder (NODULES) No history of: Diabetes Mellitus (IDDM), Diabetes Mellitus (NIDDM) Rheumatology: No history of;: Fibromyalgia, Gout, Systemic Lupus Erythematosus Respiratory: No history of: Bronchitis, Obstructive Sleep Apnea, Pulmonary Hypertension Comment Only: Respiratory Problems (SINUS SURGERY) Renal: No history of: Dialysis, Renal Failure Genitourinary: No history of: Recurring Urinary Tract Infections Gastrointestinal: History of: GERD No history of: Gastrointestinal Bleed, Liver Problems Musculoskeletal: No history of: Degenerative Disk Disease Comment Only: Musculoskeletal Problems (LOW BONE DENSITY) Hematology: No history of: Anemia, Blood Transfusion Reaction Other: No history of: Anesthesia Reactions - Surgical History Thoracic Surgeries: Patient denies;: Lobectomy Neurologic Surgeries: Patient denies: Neurologic Surgery HEENT Surgeries: Surgical HX of: Eye Surgery (CATARACTS glaucoma bilateral), Thyroid Surgery (RIGHTTHYROID LOBECTOMY POSSIBLE TOTAL), Tonsilectomy & Adenoidectomy Abdominal Surgeries: Surgical HX of: Appendectomy, Cholecystectomy, Colonoscopy , EGD Reproductive Surgeries: Surgical HX of;: Breast Surgery (LUMP LEFT BREAST), Hysterectomy Patient denies;: Genitourinary Surgery - Family History Family History: Reports;: Family Heart Disease (DAD SISTER), Family Hypertension (SISTER MOM) - Social History Smoking Status: Never smoker Frequency of Alcohol Use: None Type of Drug Use: None Marital Status: Functional capacity: independent ambulation 12 point system: reviewed and no additional remarkable complaints except as stated - Constitutional Constitutional: Present: fatigue. Absent: anorexia, chills, fever(s), frequent falls, night sweats, weakness, weight gain, weight loss - EENT Eyes: Absent: blurry vision Ears: Absent: decreased hearing Nose, mouth and throat: Absent: dysphagia, nasal congestion, neck pain, sinus pressure, vertigo - Cardiovascular Cardiovascular: Present: dyspnea on exertion (with episodes of a-flutter RVR). Absent: chest pain at rest, chest pain with activity, dyspnea, edema, radiating jaw, neck or arm pain, orthopnea, palpitations, PND - Respiratory Respiratory: Absent: cough, hemoptysis, dyspnea on exertion, change in phlegm color - Gastrointestinal Gastrointestinal: Absent: abdominal pain, constipation, diarrhea, dysphagia, heartburn, hematochezia, melena, nausea, vomiting, jaundice - Genitourinary Genitourinary: Absent: dysuria, flank pain, hematuria - Musculoskeletal Musculoskeletal: Absent: back pain, limited range of motion, myalgias - Neurological Neurological: Absent: abnormal gait, confusion, dizziness, syncope, tremor(s) - Psychiatric Psychiatric: Absent: anxiety, depression - Endocrine Endocrine: Absent: cold intolerance, heat intolerance - Hematologic/Lymphatic Hematologic/Lymphatic: Absent: easy bleeding, easy bruising Exam - Constitutional Vitals: Period Temp Pulse Resp BP Sys/Melgar Pulse Ox Last 24 Hr 96.8 F-98.3 F 86-131 18-20 109-131/55-78 91-96 General appearance: normal weight, no acute distress - Head Head exam: Present: normal inspection. Absent: abrasion, contusion - Eye Eye exam: Present: EOMI. Absent: periorbital swelling, laceration to eyelids Pupils: Present: DARRYL. Absent: dilated, fixed - ENT ENT exam: Present: normal external ear exam - Neck Neck exam: Present: normal inspection. Absent: tenderness - Respiratory Respiratory exam: Present: clear to auscultation bilaterally, chest wall tenderness. Absent: rales, rhonchi, stridor, wheezes - Cardiovascular Cardiovascular exam: Present: tachycardia, other (atrial flutter; regular). Absent: bradycardia, carotid bruit, JVD, systolic murmur - GI/Abdominal GI/Abdominal exam: Present: normal bowel sounds, soft. Absent: ascites, distended, firm, mass, tenderness - Extremities Exam Extremities exam: Present: normal inspection, normal capillary refill, full ROM. Absent: calf tenderness, edema - Back Exam Back exam: Present: normal inspection. Absent: CVA tenderness (L), CVA tenderness (R) - Neurological Exam Neurological exam: Present: alert, oriented X3 - Psychiatric Psychiatric exam: Present: normal affect, normal mood. Absent: agitated, anxious - Skin Skin exam: Present: normal color, warm, dry, intact. Absent: cyanosis, diaphoretic, mottled, rash Results - Labs CBC & BMP: 11/13/16 04:47 11/13/16 04:47 Lab Results: I have reviewed the past 24 hour labs - Diagnostic Findings Procedure: Chest x-ray: image reviewed by me, report reviewed by me (11/12/16: No cardiomegaly. No infiltrate or effusion.) Assessment and Plan - Time spent with patient Time spent with patient: Greater than 30 minutes (Date of assessment, planning, documentation, medication review) (1) Atrial flutter Status: Acute Assessment and plan: 89 year old WF, followed by Dr. Rojas. PMHx hyperlipidemia, hypertension, hypothyroidism. No history of CAD. Hospitalized a couple weeks ago with new onset of atrial flutter with RVR. Ventricular response controlled with IV Cardizem. Has now been taking PO Cardizem. Now admitted from [facility] clinic office after being seen in follow up and had recurrent typical atrial flutter with RVR 130-150. Symptomatic with this and has shortness of breath, fatigue. Supratherapeutic INR 4.3 and Coumadin held. Echo: LVEF 65%, mild MR and TR, PAP 29 mmHg. EKG: atrial flutter w/ ventricular response 80s on cardizem drip. Short bursts of RVR 130. -We discussed risks and benefits of management options for symptomatic atrial flutter, RVR. We will proceed with BOY/EP study/ablation, under MAC tomorrow. Discussed risks of the procedure, which include vascular and cardiac injury, thrombotic and bleeding issues, , infection. She may also have underlying sinus node disease, we discussed that the pacemaker may be needed, if this is clinically significant -Continue IV Cardizem drip for flutter, hold in a.m. -We will need BOY, INR was subtherapeutic 2 weeks ago. -Hold Coumadin today, will use p.o. vitamin K, plan to keep INR 2-3 tomorrow and at least one month after the ablation, if no recurrence of the arrhythmia -Hypertension-well controlled Current Visit: No Qualifiers: Atrial flutter type: typical Qualified Code(s): I48.3 - Typical atrial flutter (2) Chronic anticoagulation Status: Chronic Assessment and plan: SEE PLAN OF CARE LISTED ABOVE. Current Visit: Yes (3) UTI (urinary tract infection) Status: Acute Assessment and plan: SEE PLAN OF CARE LISTED ABOVE. Current Visit: Yes (4) Hypertension Status: Chronic Assessment and plan: SEE PLAN OF CARE LISTED ABOVE. Current Visit: Yes (5) GERD (gastroesophageal reflux disease) Status: Chronic Assessment and plan: SEE PLAN OF CARE LISTED ABOVE. Current Visit: No (6) Hypothyroidism Status: Chronic Assessment and plan: SEE PLAN OF CARE LISTED ABOVE. Current Visit: No (7) Hyperlipidemia Status: Chronic Assessment and plan: SEE PLAN OF CARE LISTED ABOVE. Current Visit: Yes Quality Measures - VTE Contraindication to Pharmacological VTE Prophylaxis: Already on Theraputic Agent , No Prophylaxis Needed Demetrius Koroma Attila, MD, personally performed the services described in this documentation, ascribed by Corrina Gomez RN in my presence, and it is both accurate and complete 258 .
[2016-11-13] MEDS ORDERED: PHYTONADIONE 5 MG TABLET PO ONE ×2 (13:23)
[2016-11-13] MEDS ORDERED: traMADol 50 MG TABLET PO PRN (13:43)
[2016-11-13] MEDS: CHOLECALCIFEROL 1,000 UNIT TABLET PO SCH (14:39)
[2016-11-13] MEDS: MULTIVITAMIN (CENTRUM) TABLET PO SCH (14:39)
[2016-11-13] MEDS: VITAMIN E 400 UNIT CAPSULE PO SCH (14:39)
[2016-11-13] MEDS: SULFAMETHOX/TRIMETHOPRIM 400-80 MG TABLET PO SCH ×2 (14:39→21:11)
[2016-11-13] MEDS: LEVOTHYROXINE 50 MCG TABLET PO SCH (14:40)
--- NOTE | 2016-11-13 17:44 | Cardiology Progress Note ---
Jason Koroma Vanessa, RN, am scribing for, and in the presence of, Nader Gonzalez MD 17:44. Assessment and Plan - Time spent with patient Time spent with patient: Greater than 30 minutes (1) Atrial flutter Status: Acute Assessment and plan: Recently admitted to hospital for treatment of atrial flutter with RVR. Ventricular response controlled with diltiazem and Coumadin was initiated prior to discharge. She is now admitted after presenting to primary philanthropy officer's office with atrial flutter RVR, HR 150, 2:1 block. EP consult today per Dr. Romo for possible ablation . This morning, tachycardia persists with ventricular response 120 -Continue IV Cardizem infusion. Current Visit: No Qualifiers: Atrial flutter type: typical Qualified Code(s): I48.3 - Typical atrial flutter (2) Chronic anticoagulation Status: Chronic Assessment and plan: Yesterday, supratherapeutic INR 4.3 in clinic. Coumadin held on admission. Repeat PT/INR this morning. Current Visit: Yes (3) UTI (urinary tract infection) Status: Acute Assessment and plan: Large leukocytosis per urinalysis. Culture pending. Current Visit: Yes (4) Hypertension Status: Chronic Assessment and plan: Well controlled at this time. By review, patient does not currently take routine antihypertensives. Monitor blood pressure. Current Visit: Yes (5) GERD (gastroesophageal reflux disease) Status: Chronic Assessment and plan: PPI continued. Current Visit: No (6) Hypothyroidism Status: Chronic Assessment and plan: Will continue thyroid supplement. Current Visit: No (7) Hyperlipidemia Status: Chronic Assessment and plan: Review and resume lipid lowering agents. 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 ALEXIS SUMMARY: Ms. Pugh, 89-year-old WF, PMHx atrial flutter, hyperlipidemia, hypertension, hypothyroidism. Patient is a lifelong non-smoker. No history of coronary artery disease. Positive family history of CAD. Patient was recently admitted on October 22 for new onset atrial flutter RVR after being seen in [facility] clinic for tachycardia associated with fatigue. Ventricular response was controlled with IV Cardizem, she was transitioned to PO Cardizem, started on Coumadin for anticoagulation, and was discharged the next day. Yesterday afternoon, she was seen in clinic by her primary philanthropy officer for hospital follow-up. EKG in office demonstrated atrial flutter 2:1 block with ventricular response up to 150. Also had supratherapeutic INR 4.3 in office. Patient was directly admitted from clinic to [facility] telemetry for rate control and EP consult for possible a flutter ablation. Echo on 10/22 mild LVH, EF 65%, mild MR and TR, PAP 29 mmHg, no significant valvular disease. Nuclear stress test in April 2016 was normal with no perfusion defects or ischemia. 2016: Mrs. Pugh awake and alert this morning. Son present with her at bedside. No dypsnea. Does report she has some mild upper left soreness which is reproducible with palpation during exam. No orthopnea, PND. Reports she has felt "bad" intermittently for the last couple years, generalized fatigue worsened with chief safety officer and activities. Denies history of sleep apnea. Confident she does not snore at night or have holding of breath. Admits nocturia 2 times nightly and feeling unrested when she wakes up in the morning with improvement later in the day. Atrial flutter ventricular response in 80s. Continues to have bursts of RVR ventricular response up to 130. SBP 110-130 mmHg. Labs reviewed. Cell counts stable. Electrolytes and renal function within acceptable range. Repeat INR 4.7 today. UA revealed large leukocytosis. Culture is pending. IV Cardizem @5 mg/hr. Patient reviewed and examined chart reviewed in the presence of Corrina Gomez RN and we have reviewed the case. The patient still atrial flutter with variable ventricular response. She is for ablation tomorrow by Dr. Bourne. She generally is stable from cardiac standpoint otherwise at this time. Her INR was elevated at 4.7 but her she is off of warfarin at this time. We will continue to monitor her and follow with her post procedure. We will make no changes at this time. Exam (Progress Note) - Constitutional Vitals: Period Temp Pulse Resp BP Sys/Melgar Pulse Ox Last 24 Hr 96.8 F-98.3 F 86-131 18-20 109-131/55-78 91-96 General appearance: normal weight, no acute distress, other (Elderly) - Head Head exam: Present: normal inspection. Absent: abrasion, contusion, laceration - Eye Eye exam: Present: EOMI. Absent: periorbital swelling, laceration to eyelids Pupils: Present: DARRYL. Absent: dilated, irregular - ENT ENT exam: Present: normal external ear exam - Neck Neck exam: Present: normal inspection. Absent: tenderness - Respiratory Respiratory exam: Present: clear to auscultation bilaterally, chest wall tenderness (Left). Absent: rales, rhonchi, stridor, wheezes - Cardiovascular Cardiovascular exam: Present: tachycardia, other (regular rhythm; atrial flutter ). Absent: bradycardia, carotid bruit, JVD - GI/Abdominal GI/Abdominal exam: Present: normal bowel sounds, soft. Absent: ascites, firm, mass, tenderness - Extremities Exam Extremities exam: Present: normal inspection, normal capillary refill, full ROM. Absent: calf tenderness, edema - Back Exam Back exam: Present: normal inspection. Absent: CVA tenderness (L), CVA tenderness (R) - Neurological Exam Neurological exam: Present: alert, oriented X3 - Psychiatric Psychiatric exam: Present: normal affect, normal mood. Absent: agitated, anxious, depressed - Skin Skin exam: Present: normal color, warm, dry, intact. Absent: cyanosis, diaphoretic, rash Result/EKG - Labs CBC & BMP: 11/13/16 04:47 11/13/16 04:47 Lab Results: I have reviewed the past 24 hour labs Labs: Laboratory Results - last 24 hr 11/12/16 11/13/16 11/13/16 Unknown 04:47 04:47 WBC 8.1 RBC 4.02 Hgb 12.2 Hct 35.9 MCV 89.3 MCH 30 MCHC 34.0 RDW 13.2 Plt Count 252 MPV 8.9 L Neut % (Auto) 54.8 Lymph % (Auto) 34.4 Day % (Auto) 8.0 Eos % (Auto) 1.9 Baso % (Auto) 0.5 Neut # (Auto) 4.4 Lymph # (Auto) 2.8 Day # (Auto) 0.7 Eos # (Auto) 0.2 Baso # (Auto) 0.0 Immature Gran % 0.4 Nucleated RBC % 0.0 Immature Gran # 0.03 Nucleated RBCs # 0.00 Immature Plt Fraction 0.0 Sodium 142 Potassium 4.0 Chloride 108 H Carbon Dioxide 25 Anion Gap 13.0 BUN 22 H Creatinine 0.90 GFR Calculation 49 BUN/Creatinine Ratio 24.00 H Glucose 103 Calculated Osmolality 285.1 Calcium 9.6 Magnesium 2.2 Urine Color Yellow Urine Appearance Slightly hazy Urine pH 6.0 Ur Specific Patterson 1.011 Urine Protein Negative Urine Glucose (UA) Negative Urine Ketones Negative Urine Blood Negative Urine Nitrate Negative Urine Bilirubin Negative Urine Urobilinogen < 2.0 H Urine Leukocytes Large H Urine RBC 12 Urine WBC 98 Urine WBC Clumps Few Ur Squamous Epith Cells Occasional Urine Mucus Occasional Ur Culture Indicated? Results to follow - Diagnostic Findings Procedure: Chest x-ray: image reviewed by me, report reviewed by me (11/12/16: Normal chest x-ray no cardiomegaly, infiltrate, effusion) - EKG EKG results: interpreted by me (Atrial flutter) Quality Measures - VTE Contraindication to Pharmacological VTE Prophylaxis: Already on Theraputic Agent , No Prophylaxis Needed Carlos Koroma John Timothy, MD, personally performed the services described in this documentation, ascribed by Corrina Gomez RN in my presence, and it is both accurate and complete [id number] .
[2016-11-13] MEDS: FLAXSEED OIL 1300 MG PO SCH (18:42)
[2016-11-13] MEDS: Red Yeast Rice [Red Yeast Rice] 1,200 MG PO SCH (18:43)
[2016-11-13] MEDS: CALCIUM (CARBONATE)/VITAMIN D 600 MG-400 UNIT TABLET PO SCH (21:11)
[2016-11-13] MEDS: GABAPENTIN 300 MG CAPSULE PO SCH (21:11)
[2016-11-13] MEDS: DILTIAZEM INJ 100 MG in SODIUM CHLORIDE 0.9% 100 ML IV SCH (22:26)
[2016-11-14] MEDS: SODIUM CHLORIDE 0.45% 1,000 ML IV SCH (00:52)
[2016-11-14 05:28] LABS: Basophils % 0.6 % (0.0-0.8); Eosinophils # 0.3 10*3/uL (0.0-0.87); Hematocrit 36.3 VOL% (35.7-47.0); Hemoglobin 12.2 GM/DL (12.0-16.0); Immature Granulocytes % 0.3 %; Immature Granulocytes Absolute 0.02 #; Lymphocytes # 2.6 10*3/uL (1.4-4.0); Lymphocytes % 37.6 % (21.3-54.2); Mean Corpuscular HGB Conc 33.6 GM/DL (32-36); Mean Corpuscular Hemoglobin 30 PG (27-34); Mean Corpuscular Volume 90.1 FL (87-102); Mean Platelet Volume 9.2 FL (9.6-12.0); Monocytes # 0.6 10*3/uL (0.11-0.8); Monocytes % 9.3 % (1.7-12.7); Neutrophils # 3.3 10*3/uL (1.4-7.4); Neutrophils % 48.2 % (38.7-73.9); Platelet Count 267 T/CUMM (130-400); Red Blood Count 4.03 MC/CUMM (3.8-5.5); Red Cell Distribution Width 13.3 % (9.3-17.3); White Blood Count 6.8 T/CUMM (4-12)
[2016-11-14 05:32] LABS: Partial Thromboplastin Time 33.4 SECS (0-40)
[2016-11-14 05:37] LABS: INR 2.2
[2016-11-14 05:41] LABS: PT Patient Result 23.2 SECS
[2016-11-14 05:53] LABS: Calcium 8.8 MG/DL (8.5-10.1); Magnesium 2.2 MG/DL (1.8-2.4); Osmolality,Calculated 279.4 MOS/KG (273-304); Potassium 4.5 MMOL/L (3.5-5.1)
[2016-11-14] MEDS ORDERED: LEVOTHYROXINE 50 MCG TABLET PO SCH (07:00)
--- NOTE | 2016-11-14 07:53 | History and Physical Update ---
Sedation H&P Update - History and Physical H&P was reviewed, the patient examined and there: are no changes in the patients condition since last H&P was completed. (she converted to SR last night. We will defer BOY) - Dictation Physical: refer to scanned H&P - Physical Exam Mental Status: alert and oriented Heart: regular rate and rhythm Lung: clear to auscultation Abdomen: within normal limits Vitals: within normal limits - Sedation Plan for Sedation: MAC (by the anesthesia team) Patient Consent: Procedure disscussed with patient and patinet has consented., Risks and benefits were discussed with patient,including infection,, bleeding, injury to surrounding structures, seizure, temporary nerve, Patient understands and accepts potential risks/benefits and agrees to ASA Class: IV Airway Assessment: Class II: Soft palate, uvula, fauces visible
[2016-11-14] MEDS ORDERED: HEPARIN/NACL 0.9% 2 UNITS/ML 500 ML IV ONE (08:13)
[2016-11-14] MEDS ORDERED: LIDOCAINE 1% 20 ML VIAL ONE (08:13)
[2016-11-14] MEDS ORDERED: HEPARIN/NACL 0.9% 2 UNITS/ML 1,000 ML IV ONE (08:22)
[2016-11-14] MEDS ORDERED: HEPARIN 5,000 UNIT/1 ML VIAL ONE (08:36)
--- NOTE | 2016-11-14 09:44 | Electrophysiology Report ---
Date of Procedure:: 11/14/16 Pre-op diagnosis: AFl/RVR Post-op diagnosis: same Procedure: PROCEDURAL SUMMARY Comprehensive diagnostic EP study - multiple left sided atrial flutters. Synchronized DC cardioversion. 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 Rojas, after diagnostics were complete. These arrhythmias would require extensive left atrial mapping and ablation. Her left atrial size is quite small, based on recent echo and she is quite elderly. We will pursue medical management, if the arrhythmia remains refractory, we will consider dual-chamber pacemaker implantation and AV node ablation. PLAN Bed rest for 4 hours. Stop cardizem Start po amiodarone load, 400 mg bid Continue anticoagulation with coumadin. DIAGNOSES Paroxysmal typical atrial flutter PROCEDURE REPORT A timeout was performed before the procedure. Anesthesia General anesthesia was provided by the anesthesiology service. Anticoagulation She was anticoagulated with coumadin. INR 2.2 on the day of the procedure. Access The Seldinger technique was performed utilizing a 21 gauge micropuncture needle and 0.[address] the following sheaths. RFV: 8 Fr - -Ablation catheter: [employer] bidirectional RA, His, RV recording, pacing. RFV: 8 Fr - -Decapolar deflectable CS catheter - CS recording and pacing RFV: 8 Fr Electrophysiologic Study - baseline Baseline ECG: Sinus rhythm RR 1029, PACs. UT 210, QRS 90, QT 425. The catheters were introduced under electroanatomical guidance. A 3D fast anatomical map of the right atrium was constructed with CARTO. The CS and His positions were marked. During sinus rhythm, AH 142, HV 46. Intermittent, concentric VA conduction at 700 ms RVA pacing. AV Wenckebach 490 ms. Anterograde conduction decremental, concentric. AVN ERP 600/440. Anterograde conduction decremental, concentric, no jump. Burst proximal CS stimulation at 200 ms induced atrial flutter, with cycle length variable between 210-230 ms, left to right atrial activation sequence. Entrainment was attempted from both proximal and distal CS, overdrive suppression was achieved, but no entrainment. During entrainment, she had nonsustained flutters and short bursts of atrial fibrillation, with variable morphology, then the arrhythmia stabilized again. Flutter morphology positive in 2 3 aVF, V4 through 6, negative in 1 aVL and V1 and 2. Her clinical flutter morphology was similar, although with slower cycle length, V1 and 2 was positive. The arrhythmia mechanism was concluded as left-sided atrial flutter. Management options were discussed with family and the patient's retail attendant. Given her advanced age, small left atrial size, and high risk for the potentially extensive left atrial ablation needed to address this arrhythmia, we will pursue medical management at this time. Atrial ATP was attempted from HRA and CS to terminate the flutter. Again, overdrive suppression was achieved, but the arrhythmia did not terminate, variable morphology was noted. Synchronized DC cardioversion was performed with 100 J energy. Sinus bradycardia resumed. End of the procedure The catheters were removed and the sheaths were pulled. Manual compression was applied until hemostasis was achieved. There were no complications. PROCEDURE(S) 1. Comprehensive electrophysiologic evaluation including insertion and repositioning of multiple electrode catheters with induction or attempted induction of an arrhythmia with right atrial pacing and recording, right ventricular pacing and recording (when necessary), His bundle recording (when necessary). 2. Intracardiac electrophysiologic three-dimensional mapping Anesthesia: general Surgeon / Physician: Joseluis Romo Hospital Nurse: other (Enrique) Estimated blood loss: minimal Specimens: none sent Condition: stable Disposition: floor
--- NOTE | 2016-11-14 10:16 | Order Completion Report ---
See report scanned to EMR
[2016-11-14] MEDS: MULTIVITAMIN (CENTRUM) TABLET PO SCH (10:35)
[2016-11-14] MEDS: VITAMIN E 400 UNIT CAPSULE PO SCH (10:35)
[2016-11-14] MEDS: FLAXSEED OIL 1300 MG PO SCH (10:37)
[2016-11-14] MEDS: LEVOTHYROXINE 50 MCG TABLET PO SCH (10:37)
[2016-11-14] MEDS: PANTOPRAZOLE 40 MG TABLET PO SCH (10:37)
[2016-11-14] MEDS: CALCIUM (CARBONATE)/VITAMIN D 600 MG-400 UNIT TABLET PO SCH ×2 (10:37→20:48)
[2016-11-14] MEDS: SULFAMETHOX/TRIMETHOPRIM 400-80 MG TABLET PO SCH ×2 (10:37→20:48)
[2016-11-14] MEDS: CHOLECALCIFEROL 1,000 UNIT TABLET PO SCH (10:38)
[2016-11-14] MEDS: Red Yeast Rice [Red Yeast Rice] 1,200 MG PO SCH (10:38)
[2016-11-14] MEDS: AMIODARONE 200 MG TABLET PO SCH ×2 (10:39→20:48)
[2016-11-14] MEDS ORDERED: SEVOFLURANE 1 UNIT/15 MINUTE INH ONE (12:47)
[2016-11-14] MEDS ORDERED: PROPOFOL 200 MG/20 ML VIAL IV ONE (12:47)
[2016-11-14] MEDS ORDERED: MIDAZOLAM 2 MG/2 ML VIAL ONE (12:47)
[2016-11-14] MEDS ORDERED: fentaNYL 100 MCG/2 ML VIAL ONE (12:48)
[2016-11-14] MEDS ORDERED: LACTATED RINGERS 1,000 ML IV ONE (12:57)
--- NOTE | 2016-11-14 13:03 | Anesthesia Post-Op ---
Anesthesia Post OP - Post Ansesthetic Evaluation Patient seen in post op: Yes Resp: within normal limits CV: within normal limits Mental: within normal limits Temp: within normal limits [id number]: within normal limits Nausea and Vomiting: within normal limits Pain: within normal limits
[2016-11-14] MEDS: GABAPENTIN 300 MG CAPSULE PO SCH (20:48)
[2016-11-15 05:37] LABS: Basophils % 0.4 % (0.0-0.8); Eosinophils # 0.3 10*3/uL (0.0-0.87); Eosinophils % 4.2 % (0.00-10.9); Hematocrit 33.6 VOL% (35.7-47.0); Hemoglobin 11.4 GM/DL (12.0-16.0); Immature Granulocytes % 0.3 %; Immature Granulocytes Absolute 0.02 #; Lymphocytes # 1.7 10*3/uL (1.4-4.0); Mean Corpuscular HGB Conc 33.9 GM/DL (32-36); Mean Corpuscular Hemoglobin 31 PG (27-34); Mean Corpuscular Volume 90.3 FL (87-102); Mean Platelet Volume 9.2 FL (9.6-12.0); Monocytes # 0.7 10*3/uL (0.11-0.8); Monocytes % 10.3 % (1.7-12.7); Neutrophils # 3.9 10*3/uL (1.4-7.4); Neutrophils % 58.8 % (38.7-73.9); Platelet Count 249 T/CUMM (130-400); Red Blood Count 3.72 MC/CUMM (3.8-5.5); Red Cell Distribution Width 13.4 % (9.3-17.3); White Blood Count 6.7 T/CUMM (4-12)
[2016-11-15 05:44] LABS: INR 1.4
[2016-11-15 06:09] LABS: Calcium 8.9 MG/DL (8.5-10.1); Osmolality,Calculated 277.5 MOS/KG (273-304); Potassium 4.3 MMOL/L (3.5-5.1)
[2016-11-15] MEDS: LEVOTHYROXINE 50 MCG TABLET PO SCH (06:40)
[2016-11-15 07:50] VITALS: BP 111/65
[2016-11-15] MEDS: CHOLECALCIFEROL 1,000 UNIT TABLET PO SCH (09:01)
[2016-11-15] MEDS: PANTOPRAZOLE 40 MG TABLET PO SCH (09:01)
[2016-11-15] MEDS: VITAMIN E 400 UNIT CAPSULE PO SCH (09:02)
[2016-11-15] MEDS: SULFAMETHOX/TRIMETHOPRIM 400-80 MG TABLET PO SCH (09:02)
[2016-11-15] MEDS: MULTIVITAMIN (CENTRUM) TABLET PO SCH (09:02)
[2016-11-15] MEDS: AMIODARONE 200 MG TABLET PO SCH (09:02)
[2016-11-15] MEDS: CALCIUM (CARBONATE)/VITAMIN D 600 MG-400 UNIT TABLET PO SCH (09:03)
[2016-11-15] MEDS: FLAXSEED OIL 1300 MG PO SCH (09:03)
[2016-11-15] MEDS: Red Yeast Rice [Red Yeast Rice] 1,200 MG PO SCH (09:04)
--- NOTE | 2016-11-15 12:31 | Discharge Summary ---
Jason Koroma Vanessa, RN, am scribing for, and in the presence of, Joseluis Romo MD 12 :30. Hospital Course - Hospital Course Hospital Course: Ms. Pugh, 89-year-old [place]F, followed by Dr. Iwona Rojas. Past medical history includes hypertension, hyperlipidemia, hypothyroid. No known history of CAD. She was hospitalized a couple weeks ago with new onset atrial flutter with RVR. Her ventricular response was controlled with IV Cardizem and she was started on Eliquis. She was discharged home with p.o. Cardizem and Coumadin (due to cost issues with Eliquis). Patient was seen in follow-up by her primary acid painter in clinic on November 12, and she had an EKG showing atrial flutter with RVR, 150s. Patient was symptomatic with this--shortness of breath , fatigue, some lightheadedness. Her INR was supratherapeutic, 4.3, and Coumadin was held. Echo: LVEF 65%, mild MR and TR, PAP 29 mmHg per patient was admitted from the clinic to [facility] telemetry for rate control and further observation. During admission, electrophysiology was consulted and Dr. Romo evaluated. It was elected patient undergo EP study with ablation. Patient's INR was noted to have been subtherapeutic within 2 weeks of hospital admission and presenting with supratherapeutic level, she was given vitamin K prior to procedure. Therapeutic INR was achieved. She converted to SR with iv. cardizem drip. On November 14, EP study demonstrated left sided atrial flutters. Due to patient's advanced age and left atrial size being quite small based on recent echo, it was elected to pursue with medical management, instead of proceeding with an extensive ablation with high procedural risks. If the arrhythmia remains refractory, consideration could be given to a dual-chamber pacemaker implant and AV node ablation. Po amiodarone load was initiated. No groin complications, and patient recovered from anesthesia without difficulty. This morning, telemetry is stable demonstrating sinus rhythm with first-degree AV block and PACs, heart rate 70. Blood pressure has been stable. At this time, it is felt that she has reached maximum hospital benefit, and she is stable for discharge home this morning. Discussed groin precautions with patient and her family present at bedside. All voiced understanding. Also discussed discharge medications, instructions on how to take them, and discussed upcoming follow-up appointments and 30 day event monitor. They voiced understanding of this as well. Initial UA on admission positive for UTI, and patient has been placed on Bactrim, now received 5 doses. Will continue at discharge for a total of 7 days of antibiotic treatment. Prescriptions provided for new medications. Labs reviewed: INR 1.4 Electrolytes and renal function within normal Cell counts stable -Resume Coumadin 2.5 mg PO daily, starting tonight. -Follow up with Dr. Rojas in 1 week for PT/INR check, EKG, and groin check. -Continue amiodarone 400 mg by mouth twice daily x 7 days. -After 7 days, decrease amiodarone 200 mg by mouth once daily. -30 day event monitor upon discharge ([facility] - 5th floor; [facility]). -Follow up in EP clinic with Dr. Romo in 5 weeks after completing 30 day event monitor. Will need EKG, BMP, magnesium, TSH. -No heavy lifting, straining, pulling x 3 days -Continue Bactrim (400-80) 1 tablet by mouth twice daily x 4 more days. ROS: -No dyspnea -no chest pain -no lightheadedness or dizziness - Time spent with patient Time with patient DS: Greater than 30 minutes Diagnosis - Discharge Diagnosis (1) Atrial flutter Status: Resolved (2) Chronic anticoagulation Status: Chronic (3) UTI (urinary tract infection) Status: Acute (4) Hypertension Status: Chronic (5) GERD (gastroesophageal reflux disease) Status: Chronic (6) Hypothyroidism Status: Chronic (7) Hyperlipidemia Status: Chronic Specialty Discharge - Follow Up or Referrals Follow up with: Iwona Rojas DO [Physician] - 11/21/16 10:00 am (Follow-up appointment with Dr. Rojas post procedure for groin check, EKG. she will also need PT/INR check as she is resuming her Coumadin today, 11/15/16. Please make this appointment for around 9:30 AM.) Joseluis Romo MD [Physician] - 12/25/16 1:50 pm (Follow-up appointment with Dr. Romo in 5 weeks after patient completes a 30 day event recorder upon discharge home- Nov 18 at 8:00 go to [facility] to pickup event monitor Will need EKG, CBC, BMP, magnesium level, and TSH.) Discharge Plan - Discharge Data Disposition: Disch To Home/Self Care Condition at Discharge: Stable Discharge Diet: heart healthy, low fat, low cholesterol Activity: resume usual activities as tolerated, no lifting (No lifting, straining, bending 3 days), other (Routine post catheterization/ablation instructions) Hygiene: may shower, keep area(s) dry (Right groin), other (No tub bathing 1 week) Weight Bearing at Discharge: full weight bearing Driving: not until seen by doctor Contact your physician if you experience:: fever over 101, Difficulty voiding, Redness or swelling, Nausea/Vomiting, Shortness of breath, Bleeding, pain uncontrolled by pain medications - Discharge Medications New Amiodarone Tab [Cordarone Tab] 400 mg PO BID #60 tablet Amiodarone Tab [Cordarone Tab] 200 mg PO DAILY tablet Sulfameth/Trimeth 400-80 Tab [Bactrim Tab] 1 tablet PO BID #9 tablet Warfarin [Coumadin] 2.5 mg PO DAILY@1800 tablet Continue Omeprazole 40 mg PO AC BREAKFAST Ranitidine Tab [Zantac Tab] 150 mg PO DAILY PRN PRN Reason: Heartburn diphenhydrAMINE CAP [Benadryl Cap] 25 mg PO Q6-8H PRN PRN Reason: Sinus Symptoms Cholecalciferol (Vitamin D3) [Vitamin D3] 2,000 units PO DAILY Vitamin E 400 units PO DAILY Multivitamin [Multivitamins] 1 each PO DAILY Calcium Carbonate/Vitamin D3 [Calcium 600-Vit D3 800 Tablet] 1 tablet PO BID Levothyroxine Tab [Synthroid Tab] 50 mcg PO DAILY@0700 Gabapentin 300 mg PO BEDTIME Flaxseed Oil 1,300 mg PO DAILY Red Yeast Rice 1,200 mg PO DAILY Tramadol HCl [Tramadol Tab] 25 mg PO BID PRN PRN Reason: Pain Moderate (4-7) Discontinued Warfarin [Coumadin] 5 mg PO DAILY@1800 Diltiazem HCl [Cardizem LA] 360 mg PO AC BREAKFAST #60 tab.er.24h - Follow Up or Referral Follow Up: Joseluis Romo MD [Physician] - 12/25/16 1:50 pm (Follow-up appointment with Dr. Romo in 5 weeks after patient completes a 30 day event recorder upon discharge home- Nov 18 at 8:00 go to [facility] to pickup event monitor Will need EKG, CBC, BMP, magnesium level, and TSH.) Iwona Rojas, [Physician] - 11/21/16 10:00 am (Follow-up appointment with Dr. Rojas post procedure for groin check, EKG. she will also need PT/INR check as she is resuming her Coumadin today, 11/15/16. Please make this appointment for around 9:30 AM.) - Forms/Instructions Instructions: Atrial Fibrillation (DC), Left Heart Catheterization (DC) Exam - Constitutional Vitals: Period Temp Pulse Resp BP Sys/Melgar Pulse Ox Last 24 Hr 96.8 F-98.3 F 75-93 16-20 90-135/52-72 93-98 Exam: General appearance: normal weight, no acute distress - Head Head exam: Present: normal inspection. Absent: abrasion, contusion - Eye Eye exam: Present: EOMI. Absent: periorbital swelling, laceration to eyelids Pupils: Present: DARRYL. Absent: dilated, fixed - ENT ENT exam: Present: normal external ear exam - Neck Neck exam: Present: normal inspection. Absent: tenderness - Respiratory Respiratory exam: Present: clear to auscultation bilaterally, chest wall tenderness. Absent: rales, rhonchi, stridor, wheezes - Cardiovascular Cardiovascular exam: Present: Regular rate and rhythm. Absent: bradycardia, carotid bruit, JVD, systolic murmur - GI/Abdominal GI/Abdominal exam: Present: normal bowel sounds, soft. Absent: ascites, distended, firm, mass, tenderness - Extremities Exam Extremities exam: Present: normal inspection, normal capillary refill, full ROM. Absent: calf tenderness, edema. Other: Right groin cath site area is soft with no bruise or hematoma. Bilateral upper and lower extremity pulses are present, palpable, and equal throughout. - Back Exam Back exam: Present: normal inspection. Absent: CVA tenderness (L), CVA tenderness (R) - Neurological Exam Neurological exam: Present: alert, oriented X3 - Psychiatric Psychiatric exam: Present: normal affect, normal mood. Absent: agitated, anxious - Skin Skin exam: Present: normal color, warm, dry, intact. Absent: cyanosis, diaphoretic, mottled, rash Discharge Results Labs on day of discharge: Labs from last 24 hours 11/15/16 11/15/16 11/15/16 05:00 05:00 05:00 WBC 6.7 RBC 3.72 L Hgb 11.4 L Hct 33.6 L MCV 90.3 MCH 31 MCHC 33.9 RDW 13.4 Plt Count 249 MPV 9.2 L Neut % (Auto) 58.8 Lymph % (Auto) 26.0 [place] % (Auto) 10.3 Eos % (Auto) 4.2 Baso % (Auto) 0.4 Neut # (Auto) 3.9 Lymph # (Auto) 1.7 [place] # (Auto) 0.7 Eos # (Auto) 0.3 Baso # (Auto) 0.0 Immature Gran % 0.3 Nucleated RBC % 0.0 Immature Gran # 0.02 Nucleated RBCs # 0.00 Immature Plt Fraction 0.0 INR 1.4 PT Patient/Control Mix 15.0 D Sodium 139 Potassium 4.3 Chloride 108 H Carbon Dioxide 23 Anion Gap 12.3 BUN 18 Creatinine 0.80 GFR Calculation 57 BUN/Creatinine Ratio 22.00 H Glucose 79 Calculated Osmolality 277.5 Calcium 8.9 - Imaging and Cardiology Cardiology Procedure: image reviewed by me Procedure: Chest x-ray: image reviewed by me, report reviewed by me DS: Provider Attending physician on admission: Shade Gonzalez MD Consults: 11/12/16 16:01 Consult to Physician [CONS] Routine Comment: typical atrial flutter Consulting Provider: Joseluis Romo Person Notified: Dr Fernández Date Notified: 11/12/16 Time Notified: 18:49 Discharging clinician: Shade Gonzalez MD Expected date of discharge: 11/15/16 Demetrius Koroma Attila, MD, personally performed the services described in this documentation, ascribed by Corrina Gomez RN in my presence, and it is both accurate and complete 230 .
[2016-11-15] MEDS ORDERED: WARFARIN 2.5 MG TABLET PO SCH (18:00)
[2016-11-22] MEDS ORDERED: AMIODARONE 200 MG TABLET PO SCH (09:00)
== END 2016-11-15 11:56 | disposition home or self-care (01) | DRG 274 ==
LOC: N.TELES 16:51
PROVIDERS: ADMIT Internal Medicine Cardiovascular Disease; ATTEND Internal Medicine Cardiovascular Disease